=== PATIENT | male | born 1950 | race Caucasian/White ===

== ENCOUNTER 2016-10-17 17:19 | Inpatient (IN) | payer MEDICARE, OTHER ==
[~2016-10-17] VITALS: Ht 175.3 cm; Wt 110.0 kg
[2016-10-17] MEDS ORDERED: SODIUM CHLORIDE 0.9% 1L BAG IV* STA (17:50)
[2016-10-17] MEDS ORDERED: CEFEPIME 2GM/50 ML (PMX) 50 ML IVPB STA (17:50)
[2016-10-17 18:17] LABS: ADD SCAN DIFF NO
[2016-10-17 18:27] LABS: ABNORMAL IP MESSAGE 1; BASOPHIL # 0.1 10^3/ul (0.0-0.1); BASOPHILS % 0.3 % (0.0-2.0); EOSINOPHILS % 0.2 % (0.0-7.0); HEMATOCRIT 40.2 % (42.0-52.0); HEMOGLOBIN 13.1 g/dl (14.0-18.0); LYMPHOCYTES # 2.4 10^3/ul (0.8-2.9); LYMPHOCYTES % 12.9 % (15.0-51.0); MEAN CORPUSCULAR HEMOGLOBIN 28.2 pg (29.0-33.0); MEAN CORPUSCULAR HGB CONC 32.6 g/dl (32.0-37.0); MEAN CORPUSCULAR VOLUME 86.5 fl (82.0-101.0); MEAN PLATELET VOLUME 11.8 fl (7.4-10.4); MONOCYTE # 1.8 10^3/ul (0.3-0.9); MONOCYTES % 9.7 % (0.0-11.0); NEUTROPHIL # 14.3 10^3/ul (1.6-7.5); NEUTROPHILS % 76.3 % (39.0-77.0); PLATELET COUNT 195 10^3/UL (140-415); RED BLOOD COUNT 4.65 10^6/ul (4.70-6.10); RED CELL DISTRIBUTION WIDTH 13.2 % (11.5-14.5); WHITE BLOOD COUNT 18.7 10^3/ul (4.8-10.8)
[2016-10-17] MEDS ORDERED: ACETAMINOPHEN 500 MG TAB PO STA (18:32)
[2016-10-17] MEDS ORDERED: ONDANSETRON 4 MG INJ IV STA (18:37)
[2016-10-17] MEDS ORDERED: morphine 4 MG/ML VIAL IV STA (18:37)
[2016-10-17 18:39] LABS: ADD UMIC YES; UR ASCORBIC ACID NEGATIVE (NEGATIVE); UR BILIRUBIN (Dip) NEGATIVE (NEGATIVE); UR BLOOD (Dip) 3+ mg/dL (NEGATIVE); UR CLARITY CLOUDY (CLEAR); UR COLOR YELLOW (YELLOW); UR GLUCOSE (Dip) NEGATIVE (NEGATIVE); UR KETONES (Dip) NEGATIVE (NEGATIVE); UR LEUKOCYTE ESTERASE (Dip) 3+ Leu/ul (NEGATIVE); UR NITRITE (Dip) NEGATIVE (NEGATIVE); UR RBC > 182 /HPF (0-5); UR SPECIFIC GRAVITY (Dip) 1.013 (1.003-1.030); UR TOTAL PROTEIN (Dip) 2+ mg/dl (NEGATIVE); UR UROBILINOGEN (Dip) NEGATIVE (NEGATIVE)
[2016-10-17 18:42] LABS: INR 0.98
[2016-10-17 18:43] LABS: PARTIAL THROMBOPLASTIN TIME 27.1 Sec (25.0-35.0)
[2016-10-17 18:46] LABS: ALANINE AMINOTRANSFERASE 24 IU/L (13-69); ALBUMIN 4.8 g/dl (3.3-4.9); ALBUMIN/GLOBULIN RATIO 1.29; ALKALINE PHOSPHATASE 96 IU/L (42-121); ANION GAP 21 (8-16); ASPARTATE AMINO TRANSFERASE 16 IU/L (15-46); BILIRUBIN,INDIRECT 0.4 mg/dl (0-1.1); BILIRUBIN,TOTAL 0.4 mg/dl (0.2-1.3); BLOOD UREA NITROGEN 23 mg/dl (7-20); CALCIUM 9.3 mg/dl (8.4-10.2); CARBON DIOXIDE 26 mmol/L (21-31); CHLORIDE 98 mmol/L (97-110); CREATININE 2.01 mg/dl (0.61-1.24); GLUCOSE 155 mg/dl (70-220); SODIUM 141 mmol/L (135-144); TOTAL PROTEIN 8.5 g/dl (6.1-8.1)
--- NOTE | 2016-10-17 18:59 | ERA ---
ER Documentation Chief Complaint Date/Time DATE: 10/17/16 TIME: 18:48 Chief Complaint ABD PAIN WITH DYSURIA X 2 DAYS HPI 66-year-old male presents with increasing dysuria and hematuria for the last 2 days. In the near past he had a prostate surgery. Last 2 days however he developed the dysuria fevers chills and some generalized weakness. He believes he may have a urinary tract infection. No chest pain or shortness of breath. ROS All systems reviewed and are negative except as per history of present illness. Allergies Allergies: Coded Allergies: No Known Allergy (Unverified , 10/17/16) PMhx/Soc History of Surgery: Yes (prostate removal r/t CA) Hx Cardiac Disorders: Yes (htn, cholesterol) Hx Miscellaneous Medical Probl: Yes (kidney disease) Hx Alcohol Use: No Hx Substance Use: No Hx Tobacco Use: No Smoking Status: Never smoker Physical Exam Vitals Vital Signs Date Time Temp Pulse Resp B/P Pulse Ox O2 Delivery O2 Flow Rate FiO2 10/17/16 17:23 102.1 115 18 177/102 99 Physical Exam Const: [] Moderate distress, appears in comfort Head: Atraumatic Eyes: Normal Conjunctiva ENT: Normal External Ears, Nose and Mouth. Neck: Full range of motion..~ No meningismus. Resp: Clear to auscultation bilaterally Cardio: Regular tachycardia, no murmurs Abd: Soft, mild suprapubic tenderness without guarding rebound non distended. Normal bowel sounds Skin: No petechiae or rashes Back: No midline or flank tenderness Ext: No cyanosis, or edema Neur: Awake and alert and oriented 3, no focal deficit Psych: Normal Mood and Affect Result Diagram: 10/17/16 1800 10/17/16 1800 Results 24 hrs Laboratory Tests Test 10/17/16 18:00 White Blood Count 18.710^3/ul Red Blood Count 4.6510^6/ul Hemoglobin 13.1g/dl Hematocrit 40.2% Mean Corpuscular Volume 86.5fl Mean Corpuscular Hemoglobin 28.2pg Mean Corpuscular Hemoglobin Concent 32.6g/dl Red Cell Distribution Width 13.2% Platelet Count 94774^3/UL Mean Platelet Volume 11.8fl Neutrophils % 76.3% Lymphocytes % 12.9% Monocytes % 9.7% Eosinophils % 0.2% Basophils % 0.3% Nucleated Red Blood Cells % 0.0/100WBC Neutrophils # 14.310^3/ul Lymphocytes # 2.410^3/ul Monocytes # 1.810^3/ul Eosinophils # 0.010^3/ul Basophils # 0.110^3/ul Nucleated Red Blood Cells # 0.010^3/ul Prothrombin Time 13.0Sec Prothrombin Time Ratio 1.0 INR International Normalized Ratio 0.98 Activated Partial Thromboplast Time 27.1Sec Urine Color YELLOW Urine Clarity CLOUDY Urine pH 5.0 Urine Specific [place] 1.013 Urine Ketones NEGATIVEmg/dL Urine Nitrite NEGATIVEmg/dL Urine Bilirubin NEGATIVEmg/dL Urine Urobilinogen NEGATIVEmg/dL Urine Leukocyte Esterase 3+Yusuf/ul Urine Microscopic RBC > 182/HPF Urine Microscopic WBC > 182/HPF Urine Hemoglobin 3+mg/dL Urine Glucose NEGATIVEmg/dL Urine Total Protein 2+mg/dl Sodium Level 141mmol/L Potassium Level 4.0mmol/L Chloride Level 98mmol/L Carbon Dioxide Level 26mmol/L Anion Gap 21 Blood Urea Nitrogen 23mg/dl Creatinine 2.01mg/dl Glucose Level 155mg/dl Calcium Level 9.3mg/dl Total Bilirubin 0.4mg/dl Direct Bilirubin 0.00mg/dl Indirect Bilirubin 0.4mg/dl Aspartate Amino Transf (AST/SGOT) 16IU/L Alanine Aminotransferase (ALT/SGPT) 24IU/L Alkaline Phosphatase 96IU/L Troponin I Pending Total Protein 8.5g/dl Albumin 4.8g/dl Globulin 3.70g/dl Albumin/Globulin Ratio 1.29 Current Medications Medications (Trade) Dose Ordered Sig/Marcel Route PRN Reason Start Time Stop Time Status Last Admin Dose Admin Sodium Chloride 3410 ml 3,410 ml BOLUS OVER 2 HOURS STAT IV* 10/17/16 17:50 10/17/16 17:51 DC 10/17/16 18:17 Cefepime HCl 50 ml @ 100 mls/hr ONCE STAT IVPB 10/17/16 17:50 10/17/16 18:19 DC 10/17/16 18:17 Vancomycin HCl (Vancocin) 250 ml @ 125 mls/hr ONCE IVPB 10/17/16 19:00 10/17/16 20:59 Acetaminophen (Tylenol Tab) 500 mg ONCE STAT PO 10/17/16 18:32 10/17/16 18:33 DC 10/17/16 18:37 Morphine Sulfate (morphine) 4 mg ONCE STAT IV 10/17/16 18:37 10/17/16 18:46 DC Ondansetron HCl (Zofran Inj) 4 mg ONCE STAT IV 10/17/16 18:37 10/17/16 18:46 DC Procedures/MDM 66-year-old male with significant UTI with sepsis. Was given 30 cc/kg of IV fluid and immediate cefepime and then Vanco was added. Given morphine for pain and Zofran to prevent nausea. His initial tachycardia did eventually stabilize.. Is also given 500 mg Tylenol for fever. Need to be admitted for further treatment of his UTI and monitoring of his unstable vital signs. Patient will be admitted to telemetry. Spoke with the panel doctor who will be admitting. EKG interpretation: Normal sinus rhythm rate of 98, normal axis, no ST or changes concerning for acute ischemia, normal EKG bus monitor interpretation: Sinus tachycardia followed by normal sinus rhythm no other arrhythmia Chest x-ray interpretation: I see no acute process, no infiltrate, no pulmonary edema, no widened mediastinum, no chylothorax, no fractures Critical care time 36 minutes: This includes treatment of septic patient had recent surgery, early antibiotic administration, careful fluid administration, pain control, multiple visits patient's bedside to reassess his status, chart reviewed, discussion with admitting doctor patient and family. This does not include any billable procedures Departure Diagnosis: Primary Impression: Sepsis secondary to UTI Additional Impressions: Lactic acidosis Renal insufficiency Condition: Serious JUAN FRANCISCO VIEYRA DO Oct 17, 2016 18:59
[2016-10-17] MEDS ORDERED: VANCOMYCIN 1 GM (PMX) 250 ML IVPB SCH (19:00)
[2016-10-17 19:01] LABS: TROPONIN-I < 0.012 ng/ml (0.00-0.12)
--- NOTE | 2016-10-17 19:05 | RADRPT ---
PROCEDURE: XR Chest. CLINICAL INDICATION: Chest pain. TECHNIQUE: Single frontal view. COMPARISON: None. FINDINGS: The lungs are clear. The heart size is normal. There is no pleural effusion. There is no pneumothorax. IMPRESSION: 1. Normal chest radiograph. RPTAT: QQ .Harris Jacobo MD, Date Time Electronically viewed and signed by .Harris Jacobo MD, on 10/17/2016 19:05 .R/
[2016-10-17] MEDS ORDERED: ONDANSETRON 4 MG INJ IV PRN (19:30)
[2016-10-17] MEDS ORDERED: ACETAMINOPHEN 325 MG TAB PO PRN (19:30)
--- NOTE | 2016-10-17 22:33 | RADRPT ---
PROCEDURE: CT abdomen and pelvis without intravenous contrast. CLINICAL INDICATION: Pain. TECHNIQUE: CT of the abdomen/pelvis was performed utilizing axial images with reconstructions in s agittal and coronal planes. The administered radiation dose is CTDI 22 mGy, DLP 1478 mGy-cm. COMPARISON: No pertinent prior examinations were submitted for comparison. FINDINGS: Visualized Chest: Coronary artery calcifications are noted. Abdomen: The spleen, pancreas, gallbladder,and adrenal glands are unremarkable. The liver is diffusely dec reased in attenuation, compatible with hepatic steatosis. The kidneys are without hydronephrosis. No definite urinary calculi are seen. There is some mild ri ght perinephric and periureteral inflammatory changes which are asymmetric. There is no evidence of bowel obstruction. The appendix is normal. No intra-abdominal free air is seen. There is no evidence of intra-abdominal adenopathy or free fluid. Pelvis: There is no evidence of pelvic adenopathy or free fluid. The prostate and bladder are unremarkable. Osseous structures: Unremarkable. IMPRESSION: Asymmetric right perinephric and periureteral inflammatory changes suggestive of infection or recent passage of a calculus. No definite urinary calculi are seen. Hepatic steatosis. RPTAT: HIKT .Zafar Zimmer MD, MD Date Time Electronically viewed and signed by .Zafar Zimmer MD, MD on 10/17/2016 22:33 .T/
[2016-10-18] VITALS (10 sets, daily range): BP systolic 131–142; BP diastolic 78–85; PULSE 79–103; RESP 16–18; TEMP 98.3; Ht 175.3 cm; Wt 110.0 kg
[2016-10-18] MEDS ORDERED: BISACODYL (EC) 5 MG TAB PO PRN (00:30)
[2016-10-18] MEDS ORDERED: DOCUSATE SODIUM 100 MG CAP PO PRN (00:30)
[2016-10-18] MEDS ORDERED: ONDANSETRON 4 MG INJ IV PRN (00:30)
[2016-10-18] MEDS ORDERED: morphine 2 MG INJ IV PRN (00:30)
[2016-10-18] MEDS ORDERED: NACL 0.9% 3 ML SYG IV SCH (00:30)
[2016-10-18] MEDS ORDERED: LEVOFLOXACIN 750MG/D5W (PMX) 150 ML IVPB SCH (03:30)
[2016-10-18] MEDS ORDERED: VANCOMYCIN IV PER PHARMACY XX SCH (03:30)
--- NOTE | 2016-10-18 03:38 | HP ---
Date/Time of Note Date/Time of Note DATE: 10/18/16 TIME: 03:16 Assessment/Plan VTE Prophylaxis VTE Prophylaxis Intervention: SCD's Assessment/Plan Chief Complaint/Hosp Course This is a 66-year-old male being admitted to the telemetry floor for: #1 urosepsis: Febrile, tachycardia and positive UA representing UTI on admission. Patient is status post prostate surgery, however he does not know exactly what kind. There is evidence of a prostate on CT scan. He may have had a TURP performed. CAT scan did show ssymmetric right perinephric and periureteral inflammatory changes suggestive of infection or recent passage of a calculus. No definite urinary calculi are seen. At the current time will continue patient on vancomycin which was started in the ED. Will also start Levaquin every 48 hours. Renally dosed. Will await urine cultures. Patient may need urological consultation secondary to this urinary tract infection in the setting of recent prostate surgery. #2 diabetes mellitus: Diabetic diet, check A1c, insulin sliding scale, will hold home medications. #3 hypertension: We will verify home medications and continue as indicated. #4 hyperlipidemia: We will check lipid panel. Verify home medications and continue as indicated #5 chronic kidney disease: Recent creatinine is 2.08 with no previous creatinine levels on record. Will continue to monitor this, will consider nephrology consult. #6 DVT and GI prophylaxis: SCDs, protonix Further treatment strategy will be implemented as per the clinical course Problems: HPI/ROS Admit Date/Time Admit Date/Time Oct 17, 2016 at 19:03 Hx of Present Illness Chief complaint: Lower abdominal pain, dysuria This is a 66-year-old male who presents with increasing dysuria and hematuria for the last 2 days. 2 months ago he had prostate surgery secondary to prostate cancer performed at [facility]. Last 2 days however he developed the dysuria fevers chills and some generalized weakness. He believes he may have a urinary tract infection. No chest pain or shortness of breath. He does report that he started having urinary issues on . He also reported subjective fevers. And today he started having lower abdominal pain. Allergies: NKDA Medications: See JUN ROS Const: As per HPI Eyes : No pain discharge or redness or change in visual acuity ENT: No pain, sore throat, congestion, congestion, dysphagia or discharge Respiratory: No shortness of breath, cough, sputum, wheezing, or pleuritic pain Cardiovascular: No chest pain, palpitation, PND, or edema GI : no change in appetite, abdominal pain, nausea, vomiting, diarrhea, constipation, or change in the color his stool Genitourinary: As per HPI Musculoskeletal: No joint pain, back pain, neck pain, restricted range of motion in neck or joints Skin: No rash, bruising or hives Neuro: No headache, dizziness, syncope, seizure, focal weakness Endocrine: No polyuria, polydipsia, temperature intolerance Psych: No hallucination, depression, anxiety or suicidal ideation PMH/Family/Social Past Medical History Prostate cancer, diabetes, hyperlipidemia, hypertension, chronic kidney disease Past Surgical History Prostate surgery Family History Significant Family History: heart disease, diabetes Social History Alcohol Use: none Smoking Status: Never smoker Drug Use: none Exam/Review of Systems Vital Signs Vitals Vital Signs Date Time Temp Pulse Resp B/P Pulse Ox O2 Delivery O2 Flow Rate FiO2 10/18/16 02:01 84 10/18/16 01:19 98.3 17 118/72 100 Room Air Intake and Output 10/17/16 10/17/16 10/18/16 15:00 23:00 07:00 Intake Total 300 ml 3410 ml Balance 300 ml 3410 ml Exam Exam General: Patient is a well-developed well-nourished male lying in bed in no acute distress.. HEENT: Atraumatic, normocephalic. The pupils are equal, round and reactive. Extraocular motor are intact Neck: Supple with full range of motion. No rigidity or meningismus Chest: Nontender Lungs: Clear to auscultation bilaterally no crackles rales or wheezing Heart: Normal S1-S2, Regular rhythm and rate. No overt murmur appreciated on auscultation. Abdomen: Soft, mild suprapubic lower abdominal tenderness to palpation, normal bowel sounds. Extremities: Normal to inspection, no edema no cyanosis Neurologic: Normal mental status, speech normal, cranial nerves II through XII are intact, motor and sensory are intact, no focal weakness Additional Comments PROCEDURE: CT abdomen and pelvis without intravenous contrast. CLINICAL INDICATION: Pain. TECHNIQUE: CT of the abdomen/pelvis was performed utilizing axial images with reconstructions in sagittal and coronal planes. The administered radiation dose is CTDI 22 mGy, DLP 1478 mGy-cm. COMPARISON: No pertinent prior examinations were submitted for comparison. FINDINGS: Visualized Chest: Coronary artery calcifications are noted. Abdomen: The spleen, pancreas, gallbladder,and adrenal glands are unremarkable. The liver is diffusely decreased in attenuation, compatible with hepatic steatosis. The kidneys are without hydronephrosis. No definite urinary calculi are seen. There is some mild right perinephric and periureteral inflammatory changes which are asymmetric. There is no evidence of bowel obstruction. The appendix is normal. No intra- abdominal free air is seen. There is no evidence of intra-abdominal adenopathy or free fluid. Pelvis: There is no evidence of pelvic adenopathy or free fluid. The prostate and bladder are unremarkable. Osseous structures: Unremarkable. IMPRESSION: Asymmetric right perinephric and periureteral inflammatory changes suggestive of infection or recent passage of a calculus. No definite urinary calculi are seen. Hepatic steatosis. RPTAT: HIKT .Zafar Zimmer MD, MD Date Time Electronically viewed and signed by .Zafar Zimmer MD, MD on 10/17/2016 22:33 PROCEDURE: XR Chest. CLINICAL INDICATION: Chest pain. TECHNIQUE: Single frontal view. COMPARISON: None. FINDINGS: The lungs are clear. The heart size is normal. There is no pleural effusion. There is no pneumothorax. IMPRESSION: 1. Normal chest radiograph. RPTAT: QQ .Harris Jacobo MD, MD Date Time Electronically viewed and signed by .Harris Jacobo MD, MD on 10/17/2016 19:05 Labs Result Diagram: 10/17/16 1800 10/17/16 1800 Medications Medications Current Medications Ondansetron HCl (Zofran Inj) 4 mg Q6H PRN IV NAUSEA AND/OR VOMITING; Start at 00:30 Acetaminophen (Tylenol Tab) 650 mg Q6H PRN PO PAIN LEVEL 1-3 OR FEVER; Start at 00:30 Morphine Sulfate (morphine) 2 mg Q4H PRN IV PAIN LEVEL 7-10; Start 10/18/16 at 00:30 Docusate Sodium (Colace) 100 mg Q12H PRN PO CONSTIPATION; Start 10/18/16 at 00: 30 Bisacodyl (Dulcolax) 5 mg DAILY PRN PO CONSTIPATION; Start 10/18/16 at 00:30 Pantoprazole (Protonix Iv) 40 mg DAILY@06 IV ; Start 10/18/16 at 06:00 TONYA CASTRO Oct 18, 2016 03:26
[2016-10-18] MEDS ORDERED: CARV3.1260 PO (04:06)
[2016-10-18] MEDS ORDERED: LISI10TA2 PO (04:06)
[2016-10-18] MEDS ORDERED: AMLO-147 PO (04:06)
[2016-10-18] MEDS ORDERED: ASPI81TA3 PO (04:06)
[2016-10-18] MEDS ORDERED: TAMS0.4C2 PO (04:06)
[2016-10-18] MEDS ORDERED: CHOL100062 PO (04:07)
[2016-10-18] MEDS ORDERED: FEBU40TA PO (04:07)
[2016-10-18] MEDS ORDERED: TADA5TAB7 PO (04:07)
[2016-10-18] MEDS ORDERED: GLIP5TAB13 PO (04:07)
[2016-10-18] MEDS ORDERED: RANI150C11 PO (04:07)
[2016-10-18] MEDS ORDERED: ATOR10TA65 PO (04:07)
[2016-10-18] MEDS ORDERED: SODI650T PO (04:07)
[2016-10-18] MEDS ORDERED: VANCOMYCIN 1.25 GM in SOD CHLORIDE 0.9% 250 ML IVPB SCH (05:00)
[2016-10-18] MEDS ORDERED: PANTOPRAZOLE 40 MG INJ IV SCH (06:00)
[2016-10-18 07:27] LABS: ABNORMAL IP MESSAGE 1; ADD SCAN DIFF NO; BASOPHIL # 0.1 10^3/ul (0.0-0.1); BASOPHILS % 0.3 % (0.0-2.0); EOSINOPHILS # 0.1 10^3/ul (0.0-0.5); EOSINOPHILS % 0.3 % (0.0-7.0); HEMATOCRIT 33.6 % (42.0-52.0); HEMOGLOBIN 10.9 g/dl (14.0-18.0); LYMPHOCYTES # 2.4 10^3/ul (0.8-2.9); MEAN CORPUSCULAR HEMOGLOBIN 28.3 pg (29.0-33.0); MEAN CORPUSCULAR HGB CONC 32.4 g/dl (32.0-37.0); MEAN CORPUSCULAR VOLUME 87.3 fl (82.0-101.0); MEAN PLATELET VOLUME 11.7 fl (7.4-10.4); MONOCYTE # 1.8 10^3/ul (0.3-0.9); MONOCYTES % 9.4 % (0.0-11.0); NEUTROPHIL # 15.1 10^3/ul (1.6-7.5); NEUTROPHILS % 77.2 % (39.0-77.0); PLATELET COUNT 152 10^3/UL (140-415); RED BLOOD COUNT 3.85 10^6/ul (4.70-6.10); RED CELL DISTRIBUTION WIDTH 13.4 % (11.5-14.5); WHITE BLOOD COUNT 19.6 10^3/ul (4.8-10.8)
[2016-10-18 07:41] LABS: ALBUMIN 3.7 g/dl (3.3-4.9); ALBUMIN/GLOBULIN RATIO 1.19; BILIRUBIN,INDIRECT 0.3 mg/dl (0-1.1); BILIRUBIN,TOTAL 0.3 mg/dl (0.2-1.3); CALCIUM 8.7 mg/dl (8.4-10.2); CREATININE 1.87 mg/dl (0.61-1.24); POTASSIUM 4.6 mmol/L (3.5-5.1); TOTAL PROTEIN 6.8 g/dl (6.1-8.1)
[2016-10-18] MEDS ORDERED: VANCOMYCIN 1.5 GM in SOD CHLORIDE 0.9% 250 ML IVPB SCH (09:00)
--- NOTE | 2016-10-18 12:54 | PN ---
Date/Time of Note Date/Time of Note DATE: 10/18/16 TIME: 12:48 Assessment/Plan VTE Prophylaxis VTE Prophylaxis Intervention: SCD's Lines/Catheters IV Catheter Type (from Nrs): Saline Lock Assessment/Plan Assessment/Plan 66 yo M with pmhx CKD, prostate ca sp RRP (robotic radical prostatectomy) 2 mos ago presented with fevers and dysuria, found to have evidence of pyelo on imaging. Pt with sepsis from pyelonephritis c/b bacteremia, gram negative pathogen not yet ID'd. #pyelo: -Rocephin pending further culture data #CKD, HTN, HL cont home meds including chronic vitamin D, bicarb, BP meds, statin Daily ChemP #GERD: cont home H2B #DM2: a1c 6.4 cont SFU Diet: Carb controlled Prophx: DVT Subjective 24 Hr Interval Summary Free Text/Dictation Pt feeling better today. Regarding the prostate surgery he had 2 mos ago, it was a robot assisted radical prostatectomy Exam/Review of Systems Vital Signs Vitals Vital Signs Date Time Temp Pulse Resp B/P Pulse Ox O2 Delivery O2 Flow Rate FiO2 10/18/16 12:10 95 10/18/16 12:00 98.5 18 140/82 96 10/18/16 01:19 Room Air Intake and Output 10/17/16 10/17/16 10/18/16 15:00 23:00 07:00 Intake Total 300 ml 3410 ml Balance 300 ml 3410 ml Exam nad, laying in bed no mrg lungs clear abd soft no cva tenderness bl no rashes blood cultures from admission with 2/2 GNRs Results Result Diagram: 10/18/16 0630 10/18/16 0627 Results 24 hrs Laboratory Tests Test 10/17/16 18:00 10/17/16 20:00 10/17/16 21:42 10/18/16 06:27 White Blood Count 18.7 H Red Blood Count 4.65 L Hemoglobin 13.1 L Hematocrit 40.2 L Mean Corpuscular Volume 86.5 Mean Corpuscular Hemoglobin 28.2 L Mean Corpuscular Hemoglobin Concent 32.6 Red Cell Distribution Width 13.2 Platelet Count 195 Mean Platelet Volume 11.8 H Neutrophils % 76.3 Lymphocytes % 12.9 L Monocytes % 9.7 Eosinophils % 0.2 Basophils % 0.3 Nucleated Red Blood Cells % 0.0 Neutrophils # 14.3 H Lymphocytes # 2.4 Monocytes # 1.8 H Eosinophils # 0.0 Basophils # 0.1 Nucleated Red Blood Cells # 0.0 Prothrombin Time 13.0 Prothrombin Time Ratio 1.0 INR International Normalized Ratio 0.98 Activated Partial Thromboplast Time 27.1 Urine Color YELLOW Urine Clarity CLOUDY A Urine pH 5.0 Urine Specific [place] 1.013 Urine Ketones NEGATIVE Urine Nitrite NEGATIVE Urine Bilirubin NEGATIVE Urine Urobilinogen NEGATIVE Urine Leukocyte Esterase 3+ H Urine Microscopic RBC > 182 H Urine Microscopic WBC > 182 H Urine Hemoglobin 3+ H Urine Glucose NEGATIVE Urine Total Protein 2+ H Sodium Level 141 143 Potassium Level 4.0 4.6 Chloride Level 98 104 Carbon Dioxide Level 26 26 Anion Gap 21 H 18 H Blood Urea Nitrogen 23 H 23 H Creatinine 2.01 H 1.87 H Glucose Level 155 168 Lactic Acid Level 2.7 *H 1.9 1.2 Calcium Level 9.3 8.7 Total Bilirubin 0.4 0.3 Direct Bilirubin 0.00 0.00 Indirect Bilirubin 0.4 0.3 Aspartate Amino Transf (AST/SGOT) 16 14 L Alanine Aminotransferase (ALT/SGPT) 24 26 Alkaline Phosphatase 96 69 Troponin I < 0.012 Total Protein 8.5 H 6.8 # Albumin 4.8 3.7 # Globulin 3.70 H 3.10 Albumin/Globulin Ratio 1.29 1.19 Hemoglobin A1c 6.4 H Triglycerides Level 77 Cholesterol Level 99 L LDL Cholesterol, Calculated 51 HDL Cholesterol 33 Cholesterol/HDL Ratio 3.0 Test 10/18/16 06:30 White Blood Count 19.6 H Red Blood Count 3.85 L Hemoglobin 10.9 L Hematocrit 33.6 L Mean Corpuscular Volume 87.3 Mean Corpuscular Hemoglobin 28.3 L Mean Corpuscular Hemoglobin Concent 32.4 Red Cell Distribution Width 13.4 Platelet Count 152 # Mean Platelet Volume 11.7 H Neutrophils % 77.2 H Lymphocytes % 12.0 L Monocytes % 9.4 Eosinophils % 0.3 Basophils % 0.3 Nucleated Red Blood Cells % 0.0 Neutrophils # 15.1 H Lymphocytes # 2.4 Monocytes # 1.8 H Eosinophils # 0.1 Basophils # 0.1 Nucleated Red Blood Cells # 0.0 Magnesium Level 1.9 Thyroid Stimulating Hormone (TSH) 3.900 Medications Medications Current Medications Ondansetron HCl (Zofran Inj) 4 mg Q6H PRN IV NAUSEA AND/OR VOMITING; Start at 00:30 Acetaminophen (Tylenol Tab) 650 mg Q6H PRN PO PAIN LEVEL 1-3 OR FEVER; Start at 00:30 Morphine Sulfate (morphine) 2 mg Q4H PRN IV PAIN LEVEL 7-10; Start 10/18/16 at 00:30 Docusate Sodium (Colace) 100 mg Q12H PRN PO CONSTIPATION; Start 10/18/16 at 00: 30 Bisacodyl (Dulcolax) 5 mg DAILY PRN PO CONSTIPATION; Start 10/18/16 at 00:30 Amlodipine Besylate (Norvasc) 10 mg DAILY PO ; Start 10/19/16 at 09:00 Aspirin (Aspirin) 81 mg DAILY PO ; Start 10/19/16 at 09:00 Atorvastatin Calcium (Lipitor) 20 mg QHS PO ; Start 10/18/16 at 21:00 Carvedilol (Coreg) 3.125 mg BID PO ; Start 10/18/16 at 21:00 Cholecalciferol (Vitamin D) 2,000 unit DAILY PO ; Start 10/18/16 at 13:00 Febuxostat (Uloric) 40 mg DAILY PO ; Start 10/19/16 at 09:00 Lisinopril (Zestril) 10 mg DAILY PO ; Start 10/19/16 at 09:00 Ranitidine HCl (Zantac) 150 mg BID PO ; Start 10/18/16 at 21:00 Sodium Bicarbonate (Sodium Bicarbonate Tab) 650 mg BID PO ; Start 10/18/16 at 21 :00 Tamsulosin HCl 0.4 mg 0.4 mg DAILY@21 PO ; Start 10/18/16 at 21:00 Ceftriaxone Sodium (Rocephin) 50 ml @ 100 mls/hr Q24H IVPB ; Start 10/18/16 at 13:00 SEAN BOLDEN MD Oct 18, 2016 12:54
[2016-10-18] MEDS: CHOLECALCIFEROL 1,000 UNIT TAB PO SCH (13:45)
[2016-10-18] MEDS: CEFTRIAXONE 1 GM/50 ML (PMX) 50 ML IVPB SCH (13:46)
[2016-10-18] MEDS: ACETAMINOPHEN 325 MG TAB PO PRN ×2 (15:22→21:14)
[2016-10-18] MEDS: RANITIDINE 150 MG TAB PO SCH (21:13)
[2016-10-18] MEDS: NA BICARBONATE 650 MG TAB PO SCH (21:13)
[2016-10-18] MEDS: ATORVASTATIN 20 MG TAB PO SCH (21:14)
[2016-10-18] MEDS: TAMSULOSIN (SR) 0.4 MG CAP PO SCH (21:14)
[2016-10-19 02:00] VITALS: BP 129/75; RESP 18
[2016-10-19 05:32] LABS: ADD SCAN DIFF NO
[2016-10-19 05:37] LABS: BASOPHILS % 0.3 % (0.0-2.0); EOSINOPHILS % 0.1 % (0.0-7.0); HEMATOCRIT 35.3 % (42.0-52.0); HEMOGLOBIN 11.5 g/dl (14.0-18.0); LYMPHOCYTES # 1.2 10^3/ul (0.8-2.9); LYMPHOCYTES % 11.5 % (15.0-51.0); MEAN CORPUSCULAR HGB CONC 32.6 g/dl (32.0-37.0); MEAN CORPUSCULAR VOLUME 86.1 fl (82.0-101.0); MEAN PLATELET VOLUME 12.3 fl (7.4-10.4); MONOCYTE # 1.1 10^3/ul (0.3-0.9); MONOCYTES % 10.1 % (0.0-11.0); NEUTROPHILS % 77.6 % (39.0-77.0); PLATELET COUNT 141 10^3/UL (140-415); RED CELL DISTRIBUTION WIDTH 13.7 % (11.5-14.5); WHITE BLOOD COUNT 10.4 10^3/ul (4.8-10.8)
[2016-10-19 06:02] LABS: CALCIUM 8.8 mg/dl (8.4-10.2); CREATININE 1.99 mg/dl (0.61-1.24); POTASSIUM 4.2 mmol/L (3.5-5.1)
[2016-10-19] MEDS ORDERED: glipiZIDE 5 MG TAB PO SCH (07:30)
[2016-10-19 07:54] VITALS: BP 122/85; RESP 18
[2016-10-19] MEDS: NA BICARBONATE 650 MG TAB PO SCH ×2 (08:58→21:10)
[2016-10-19] MEDS: CHOLECALCIFEROL 1,000 UNIT TAB PO SCH (08:58)
[2016-10-19] MEDS: ASPIRIN 81 MG TAB PO SCH (08:58)
[2016-10-19] MEDS: FEBUXOSTAT 40 MG TABLET PO SCH (08:58)
[2016-10-19] MEDS: LISINOPRIL 10 MG TAB PO SCH (08:59)
[2016-10-19] MEDS: AMLODIPINE 10 MG TAB PO SCH (08:59)
[2016-10-19] MEDS: RANITIDINE 150 MG TAB PO SCH ×2 (08:59→21:10)
--- NOTE | 2016-10-19 09:37 | PN ---
Date/Time of Note Date/Time of Note DATE: 10/19/16 TIME: 09:28 Assessment/Plan VTE Prophylaxis VTE Prophylaxis Intervention: ambulation, SCD's Lines/Catheters IV [facility]from [facility] Saline [facility] Assessment/Plan Chief Complaint/Hosp Course 1. E. coli pyelonephritis, acute -Continue Rocephin until final blood cultures available -IV fluid hydration. 2. Chronic kidney disease, stable -Continue home medications. -Monitor renal function closely and will avoid nephrotoxins as much as possible. 3. Essential hypertension, stable. -Continue home medications. 4. Dyslipidemia. -Continue statin. 5. Type 2 diabetes. -Start Accu-Chek and insulin sliding scale. Will hold glipizide for now. -Carbohydrate controlled diet. 6.GERD, stable. cont home H2B 7. History of prostate cancer. -Continue home medications. 8. Obesity. -Weight reduction/therapeutic lifestyle changes advised. Prophylaxis: SCDs/H2B Plan: We will continue patient on current treatment regimen and await for final blood cultures. Case discussed with Problems: Subjective 24 Hr Interval Summary Free Text/Dictation Patient sitting up in chair. Denies any dysuria, hematuria, urinary frequency/ urgency. Has been having low-grade fever overnight. Exam/Review of Systems Vital Signs Vitals Vital Signs Date Time Temp Pulse Resp B/P Pulse Ox O2 Delivery O2 Flow Rate FiO2 10/19/16 07:54 99.5 116 18 122/85 97 10/18/16 01:19 Room Air Intake and Output 10/18/16 10/18/16 10/19/16 15:00 23:00 07:00 Intake Total 250 ml 1350 ml 240 ml Balance 250 ml 1350 ml 240 ml Exam General: Well developed, obese male, not in any acute distress . HEENT: Normocephalic, Atraumatic, No laceration or hematoma; Eyes: PEERL, Conjunctiva clear, Anicteric sclera Neck: Supple without any lymphadenopathy, nontender, no JVD, no carotid bruits, trachea midline, no thyromegaly Cardiac: S1, S2 auscultated, regular rhythm and rate, no mumurs or gallop Pulmonary: Normal respiratory effort. Chest clear to auscultation bilaterally, no adventitious breath sounds GI: Abdomen obese to inspection. Soft, non tender, non- distended, no masses, no rebound tenderness or guarding. Bowel sounds active on all four quadrants Genitourinary: Deferred Extremities: No cyanosis, clubbing, or edema. Pulses [2+] bilaterally. Full ROM on all four extremities. No focal weakness appreciated. Neurologic: Alert to person, place, time, and situation. Affect appropriate, intact sensation. Skin: Clean,dry, and intact. No ecchymosis, no rashes, or lesions Results Result Diagram: 10/19/16 0502 10/19/16 0502 Results 24 hrs Laboratory Tests Test 10/19/16 05:02 White Blood Count 10.4 # Red Blood Count 4.10 L Hemoglobin 11.5 L Hematocrit 35.3 L Mean Corpuscular Volume 86.1 Mean Corpuscular Hemoglobin 28.0 L Mean Corpuscular Hemoglobin Concent 32.6 Red Cell Distribution Width 13.7 Platelet Count 141 Mean Platelet Volume 12.3 H Neutrophils % 77.6 H Lymphocytes % 11.5 L Monocytes % 10.1 Eosinophils % 0.1 Basophils % 0.3 Nucleated Red Blood Cells % 0.0 Neutrophils # 8.0 H Lymphocytes # 1.2 Monocytes # 1.1 H Eosinophils # 0.0 Basophils # 0.0 Nucleated Red Blood Cells # 0.0 Sodium Level 143 Potassium Level 4.2 Chloride Level 103 Carbon Dioxide Level 25 Anion Gap 19 H Blood Urea Nitrogen 22 H Creatinine 1.99 H Glucose Level 137 Calcium Level 8.8 Medications Medications Current Medications Ondansetron HCl (Zofran Inj) 4 mg Q6H PRN IV NAUSEA AND/OR VOMITING; Start at 00:30 Acetaminophen (Tylenol Tab) 650 mg Q6H PRN PO PAIN LEVEL 1-3 OR FEVER Last administered on 10/18/16 21:14; Admin Dose 650 MG; Start 10/18/16 at 00:30 Morphine Sulfate (morphine) 2 mg Q4H PRN IV PAIN LEVEL 7-10; Start 10/18/16 at 00:30 Docusate Sodium (Colace) 100 mg Q12H PRN PO CONSTIPATION; Start 10/18/16 at 00: 30 Bisacodyl (Dulcolax) 5 mg DAILY PRN PO CONSTIPATION; Start 10/18/16 at 00:30 Amlodipine Besylate (Norvasc) 10 mg DAILY PO Last administered on 10/19/16 08: 59; Admin Dose 10 MG; Start 10/19/16 at 09:00 Aspirin (Aspirin) 81 mg DAILY PO Last administered on 10/19/16 08:58; Admin Dose 81 MG; Start 10/19/16 at 09:00 Atorvastatin Calcium (Lipitor) 20 mg QHS PO Last administered on 10/18/16 21: 14; Admin Dose 20 MG; Start 10/18/16 at 21:00 Carvedilol (Coreg) 3.125 mg BID PO Last administered on 10/19/16 08:59; Admin Dose 3.125 MG; Start 10/18/16 at 21:00 Cholecalciferol (Vitamin D) 2,000 unit DAILY PO Last administered on 10/19/16 08:58; Admin Dose 2,000 UNIT; Start 10/18/16 at 13:00 Febuxostat (Uloric) 40 mg DAILY PO Last administered on 10/19/16 08:58; Admin Dose 40 MG; Start 10/19/16 at 09:00 Lisinopril (Zestril) 10 mg DAILY PO Last administered on 10/19/16 08:59; Admin Dose 10 MG; Start 10/19/16 at 09:00 Ranitidine HCl (Zantac) 150 mg BID PO Last administered on 10/19/16 08:59; Admin Dose 150 MG; Start 10/18/16 at 21:00 Sodium Bicarbonate (Sodium Bicarbonate Tab) 650 mg BID PO Last administered on 10/19/16 08:58; Admin Dose 650 MG; Start 10/18/16 at 21:00 Tamsulosin HCl 0.4 mg 0.4 mg DAILY@21 PO Last administered on 10/18/16 21:14; Admin Dose 0.4 MG; Start 10/18/16 at 21:00 Ceftriaxone Sodium (Rocephin) 50 ml @ 100 mls/hr Q24H IVPB Last administered on 10/18/16 13:46; Admin Dose 100 MLS/HR; Start 10/18/16 at 13:00 SYLVESTER BAEZ NP Oct 19, 2016 09:36
[2016-10-19] MEDS ORDERED: GLUCOSE GEL 15 GRAM TUBE BUCCAL PRN (10:00)
[2016-10-19] MEDS ORDERED: HYPOGLYCEMIA PROTOCOL when Glucose is <70 mg/dL or symptomatic <90 mg/dL. XX ONE (10:00)
[2016-10-19] MEDS ORDERED: GLUCAGON 1 MG INJ IM PRN (10:00)
[2016-10-19] MEDS ORDERED: DEXTROSE 50% 50 ML SYRINGE IV PRN ×2 (10:00)
[2016-10-19] MEDS ORDERED: GLUCOSE GEL 15 GRAM TUBE PO PRN ×2 (10:00)
[2016-10-19] MEDS ORDERED: Discontinue Glyburide, Glipizide, and/or Glimepiride prior to starting Insulin XX ONE (10:00)
[2016-10-19] MEDS: SOD CHLORIDE 0.9% 1,000 ML IV SCH ×2 (10:33→21:51)
[2016-10-19] MEDS: CEFTRIAXONE 1 GM/50 ML (PMX) 50 ML IVPB SCH (12:18)
[2016-10-19] MEDS: INSULIN ASPART [NOVOLOG] 3 ML PEN SC SCH ×3 (12:56→21:00)
[2016-10-19 14:24] VITALS: BP 129/77; PULSE 91; RESP 18
[2016-10-19] MEDS: ACETAMINOPHEN 325 MG TAB PO PRN (17:58)
[2016-10-19 19:47] VITALS: BP 131/73; RESP 20
[2016-10-19] MEDS: TAMSULOSIN (SR) 0.4 MG CAP PO SCH (21:10)
[2016-10-19] MEDS: ATORVASTATIN 20 MG TAB PO SCH (21:10)
[2016-10-20] MEDS: SOD CHLORIDE 0.9% 1,000 ML IV SCH (01:01)
[2016-10-20 02:00] VITALS: BP 138/80; RESP 20
[2016-10-20 05:36] LABS: ADD SCAN DIFF NO
[2016-10-20 05:45] LABS: BASOPHILS % 0.5 % (0.0-2.0); EOSINOPHILS % 0.4 % (0.0-7.0); HEMATOCRIT 34.9 % (42.0-52.0); HEMOGLOBIN 11.4 g/dl (14.0-18.0); LYMPHOCYTES # 1.2 10^3/ul (0.8-2.9); LYMPHOCYTES % 20.6 % (15.0-51.0); MEAN CORPUSCULAR HEMOGLOBIN 27.6 pg (29.0-33.0); MEAN CORPUSCULAR HGB CONC 32.7 g/dl (32.0-37.0); MEAN CORPUSCULAR VOLUME 84.5 fl (82.0-101.0); MEAN PLATELET VOLUME 11.5 fl (7.4-10.4); MONOCYTE # 0.7 10^3/ul (0.3-0.9); MONOCYTES % 12.6 % (0.0-11.0); NEUTROPHIL # 3.7 10^3/ul (1.6-7.5); NEUTROPHILS % 65.4 % (39.0-77.0); PLATELET COUNT 157 10^3/UL (140-415); RED BLOOD COUNT 4.13 10^6/ul (4.70-6.10); RED CELL DISTRIBUTION WIDTH 13.6 % (11.5-14.5); WHITE BLOOD COUNT 5.6 10^3/ul (4.8-10.8)
[2016-10-20 06:14] LABS: CREATININE 1.86 mg/dl (0.61-1.24); POTASSIUM 4.1 mmol/L (3.5-5.1)
[2016-10-20 07:49] VITALS: BP 132/86; RESP 18
[2016-10-20] MEDS: INSULIN ASPART [NOVOLOG] 3 ML PEN SC SCH (08:15)
[2016-10-20] MEDS: AMLODIPINE 10 MG TAB PO SCH (08:41)
[2016-10-20] MEDS: CHOLECALCIFEROL 1,000 UNIT TAB PO SCH (08:41)
[2016-10-20] MEDS: RANITIDINE 150 MG TAB PO SCH (08:41)
[2016-10-20] MEDS: NA BICARBONATE 650 MG TAB PO SCH (08:41)
[2016-10-20] MEDS: FEBUXOSTAT 40 MG TABLET PO SCH (08:41)
[2016-10-20] MEDS: ASPIRIN 81 MG TAB PO SCH (08:42)
[2016-10-20] MEDS: LISINOPRIL 10 MG TAB PO SCH (08:42)
--- NOTE | 2016-10-20 10:00 | PDOCDIS ---
Discharge Instructions CONDITION Patient Condition: Stable HOME CARE INSTRUCTIONS: Your diet recommendation is: Carbohydrate controlled 2 g sodium diet FOLLOW UP/APPOINTMENTS Follow-up Plan 1.Follow up with primary care physician in 1 week If you don't have one please let someone know, we can give you resources that may help you pick one. You may also call your insurance company to assign one to you. Review your medication list with your nurse before leaving and if you need new prescriptions please let your nurse know. I may have made changes to your home medications or given you new prescriptions, please let your primary doctor know as well. Stay compliant with your medications and report any side effects to your PCP or pharmacist. Return to the ER if you have any concerns and cannot reach your doctors or call your insurance company, they usually have a nurse that can help you. SYLVESTER BAEZ NP Oct 20, 2016 10:00
[2016-10-20] MEDS ORDERED: LEVO500T10 PO (10:02)
--- NOTE | 2016-10-20 10:15 | DS ---
Date/Time of Note Date/Time of Note DATE: 10/20/16 TIME: 10:11 Discharge Summary Admission/Discharge Info Admit Date/Time Oct 17, 2016 at 19:03 Discharge Date/Time Discharge Diagnosis 1. Sepsis secondary to E. coli pyelonephritis, acute. Resolved 2. Chronic kidney disease, stable 3. Essential hypertension, stable. 4. Dyslipidemia. 5. Type 2 diabetes. 6.GERD, stable. 7. History of prostate cancer. 8. Obesity. Patient Condition: Stable Procedures 10/17/2069. CT abdomen and pelvis without contrast. IMPRESSION: Asymmetric right perinephric and periureteral inflammatory changes suggestive of infection or recent passage of a calculus. No definite urinary calculi are seen. Hepatic steatosis. Hospital Course This is a 66-year-old male with a past medical history of prostate cancer, type 2 diabetes, hyperlipidemia, hypertension, chronic kidney disease, who presented to the emergency room with a 2 day duration of worsening dysuria associated with low-grade fever, chills, lower abdominal cramps, generalized weakness and mild hematuria. Patient had recently undergone prostate surgery 2 months ago secondary to cancer and was performed at [facility]. Patient denied any chest pain, shortness of breath, nausea, vomiting, abdominal pain, loss of consciousness or other constitutional symptoms upon presentation. Initial vital signs within acceptable range. Initial labs showed elevated WBC 18,700, BUN 23, creatinine 2.01, and lactic acid 2.7. Chest x-ray was negative. CT abdomen showed inflammatory changes suggestive of infection. Patient also had temperature 102.1 with a pulse rate 115. Patient was treated with IV fluids, broad-spectrum IV antibiotics in the emergency room with pancultures sent. Patient was admitted for further evaluation. Patient was continued on IV fluids, broad-spectrum IV antibiotics. Patient was continued on a diabetic diet, insulin sliding scale for diabetes. A1c was 6.4. He was continued on home medication for underlying hypertension and dyslipidemia. Creatinine level was monitored as patient had chronic kidney disease. We also continued to avoid nephrotoxins. Creatinine level remains at the baseline and he did not require any nephrology consult. Patient symptoms where suggestive of sepsis secondary to E. coli urinary tract infection. Culture report showed E. coli blood and urine. Patient symptoms started to resolve with aggressive medical management for sepsis as evidenced by resolution of dysuria, hematuria, fever, chills and weakness. He was able to tolerate diet and activities very well. WBC back to normal and lactic acidosis resolved. There was no further symptoms. Patient is ready for discharge at this moment. Disposition: Patient will be discharged home with primary care follow-up. Patient was also given prescription for Levaquin to take 10 days. He was also instructed to follow-up with his primary care physician. Patient was also counseled on weight reduction and therapeutic lifestyle changes. Patient verbalized discharge instructions. On day of discharge, patient condition remained stable. Approximately 60 minutes was spent in coordinating the discharge on this patient. Case discussed with . Home Meds Active Scripts Levofloxacin* (Levofloxacin*) 500 Mg Tablet, 500 MG PO DAILY for 10 Days, TAB Prov:SYLVESTER BAEZ V. [employer] ANALYST 10/20/16 Reported Medications Tadalafil (Tadalafil) 5 Mg Tablet, 10 MG PO, TAB 10/18/16 Glipizide* (Glipizide*) 5 Mg Tablet, 5 MG PO DAILY, TAB 10/18/16 Febuxostat* (Uloric*) 40 Mg Tablet, 40 MG PO DAILY, TAB 10/18/16 Sodium Bicarbonate* (Sodium Bicarbonate*) 650 Mg Tablet, 650 MG PO BID, TAB 10/18/16 Cholecalciferol* (Vitamin D3*) 1,000 Unit Tablet, 2000 UNIT PO TID, TAB 10/18/16 Ranitidine Hcl (Ranitidine Hcl) 150 Mg Capsule, 150 MG PO BID, #60 CAP 10/18/16 Atorvastatin (Atorvastatin) 10 Mg Tablet, 20 MG PO QHS, #30 TAB 10/18/16 Lisinopril* (Lisinopril*) 10 Mg Tablet, 10 MG PO DAILY, #30 TAB 10/18/16 Carvedilol* (Carvedilol*) 3.125 Mg Tablet, 3.125 MG PO BID, #60 TAB 10/18/16 Tamsulosin Hcl* (Tamsulosin Hcl*) 0.4 Mg Cap.er.24h, 0.4 MG PO DAILY, CAP 10/18/16 Aspirin* (Aspirin* Chew) 81 Mg Tab.chew, 81 MG PO DAILY, TAB.CHEW 10/18/16 Amlodipine Besylate* (Amlodipine Besylate*) 10 Mg Tablet, 10 MG PO DAILY, #30 TAB 10/18/16 Follow-up Plan 1.Follow up with primary care physician in 1 week If you don't have one please let someone know, we can give you resources that may help you pick one. You may also call your insurance company to assign one to you. Review your medication list with your nurse before leaving and if you need new prescriptions please let your nurse know. I may have made changes to your home medications or given you new prescriptions, please let your primary doctor know as well. Stay compliant with your medications and report any side effects to your PCP or pharmacist. Return to the ER if you have any concerns and cannot reach your doctors or call your insurance company, they usually have a nurse that can help you. Primary Care Provider Rohit Mays Pending Labs Laboratory Tests Test 10/19/16 11:54 10/19/16 17:10 10/19/16 21:12 10/20/16 05:17 Bedside Glucose 141mg/dL (70-220) 105mg/dL (70-220) 133mg/dL (70-220) White Blood Count 5.610^3/ul (4.8-10.8) Red Blood Count 4.1310^6/ul (4.70-6.10) Hemoglobin 11.4g/dl (14.0-18.0) Hematocrit 34.9% (42.0-52.0) Mean Corpuscular Volume 84.5fl (82.0-101.0) Mean Corpuscular Hemoglobin 27.6pg (29.0-33.0) Mean Corpuscular Hemoglobin Concent 32.7g/dl (32.0-37.0) Red Cell Distribution Width 13.6% (11.5-14.5) Platelet Count 08972^3/UL (140-415) Mean Platelet Volume 11.5fl (7.4-10.4) Neutrophils % 65.4% (39.0-77.0) Lymphocytes % 20.6% (15.0-51.0) Monocytes % 12.6% (0.0-11.0) Eosinophils % 0.4% (0.0-7.0) Basophils % 0.5% (0.0-2.0) Nucleated Red Blood Cells % 0.0/100WBC (0.0-0.0) Neutrophils # 3.710^3/ul (1.6-7.5) Lymphocytes # 1.210^3/ul (0.8-2.9) Monocytes # 0.710^3/ul (0.3-0.9) Eosinophils # 0.010^3/ul (0.0-0.5) Basophils # 0.010^3/ul (0.0-0.1) Nucleated Red Blood Cells # 0.010^3/ul (0.0-0.0) Sodium Level 143mmol/L (135-144) Potassium Level 4.1mmol/L (3.5-5.1) Chloride Level 104mmol/L (97-110) Carbon Dioxide Level 26mmol/L (21-31) Anion Gap 17 (8-16) Blood Urea Nitrogen 22mg/dl (7-20) Creatinine 1.86mg/dl (0.61-1.24) Glucose Level 113mg/dl (70-220) Calcium Level 9.0mg/dl (8.4-10.2) Test 10/20/16 08:11 Bedside Glucose 124mg/dL (70-220) SYLVESTER BAEZ V. [employer] ANALYST Oct 20, 2016 10:15
[2016-10-20 11:18] VITALS: BP 137/86; PULSE 88; RESP 16
== END 2016-10-20 11:35 | disposition home or self-care (01) | DRG 872 ==
LOC: E/R 17:19 → MS4 19:03 → MS2 10-18 19:25
PROVIDERS: ADMIT Family Medicine; ATTEND Family Medicine
DX: A41.51 Sepsis due to Escherichia coli [E. coli] (principal); N39.0 Urinary tract infection, site not specified; E11.22 Type 2 diabetes mellitus with diabetic chronic kidney disease; E78.5 Hyperlipidemia, unspecified; E66.9 Obesity, unspecified; I12.9 Hypertensive chronic kidney disease with stage 1 through stage 4 chronic kidney disease, or unspecified chronic kidney disease; N18.9 Chronic kidney disease, unspecified; K21.9 Gastro-esophageal reflux disease without esophagitis; Z85.46 Personal history of malignant neoplasm of prostate; Z90.79 Acquired absence of other genital organ(s); Z68.35 Body mass index [BMI] 35.0-35.9, adult
CPT/HCPCS: 36415; 71010; 74176; 80048; 80053; 80061; 81001; 82962; 83036; 83605; 83735; 84443; 84484; 85025; 85610; 85730; 87040; 87086; 93005; 96361; 96365; 96366; 96367; C9113; J0692; J0696; J1815; J1956; J3370; J7030; J7050